=== PATIENT | male | born 1945 | race African-American/Black ===

== ENCOUNTER 2016-06-27 12:03 | Emergency (ER) | payer OTHER ==
--- NOTE | ~2016-06-27 | CT71 ---
[facility] A Service of [facility] RADIOLOGY TEXT RESULTS PATIENT: CRISTIANE DEVI JR LOCATION: [facility] : 47 UNIT #: [id number] AGE: [address]: Andres Jerome MD SEX: M ORDER DR: [id number] [facility] [address] [place], [place] [address] [id number] E MR#: [id number] Acc #: [id number] NAME: CRISTIANE DEVI JR : 1945 SEX: M STUDY DATE/TIME: 06/27/2016 10:35 UNIT: [facility]ARE ROOM: STUDY DESCRIPTION: CT Head Wo Contrast Attending Physician: Andres Jerome M.D. Ordering Physician: Andres Jerome M.D. Primary Care Physician: Froylan Allen M.D. MEDICAL IMAGING REPORT This report is preliminary unless electronic signature is present EXAM CT head 06/27/2016. COMPARISON CT head dated 02/11/2004. HISTORY Off balance. Dizziness. 4-day duration. TECHNIQUE CT head without contrast. This CT exam was performed with one or more of the following radiation dose reduction techniques: automatic exposure control, adjustment of mA and/or kV according to patient size, and iterative reconstruction. FINDINGS There is no acute intracranial hemorrhage, mass lesion, or acute infarct. There is some generalized global cerebral atrophy. The ventricles and basilar cisterns are normal in size and configuration. No extraaxial collections. No acute osseous abnormalities. Visualized paranasal sinuses and mastoids are clear. IMPRESSION No acute intracranial findings. Chronic small vessel changes. Dictated by... Raymundo Orosco M.D. THIS IS AN ELECTRONICALLY VERIFIED REPORT Raymundo Orosco M.D. at 06/27/2016 2:37 PM [facility] A Service [facility] RADIOLOGY TEXT RESULTS PATIENT: CRISTIANE DEVI JR LOCATION: [facility] : 47 UNIT #: [id number] AGE: [address]: Andres Jerome MD SEX: M ORDER DR: VICTOR HUGO/angela TD: 06/27/2016 12:41 JOB #: [id number] MEDICAL IMAGING REPORT COPY
--- NOTE | ~2016-06-27 | CR72 ---
[facility] A Service of [facility] RADIOLOGY TEXT RESULTS PATIENT: CRISTIANE DEVI JR LOCATION: [facility] : 47 UNIT #: [id number] AGE: [address]: Andres Jerome MD SEX: M ORDER DR: [id number] [facility] [address] [place], [place] [address] [id number] E MR#: [id number] Acc #: [id number] NAME: CRISTIANE DEVI JR : 1945 SEX: M STUDY DATE/TIME: 06/27/2016 10:22 UNIT: [facility] ROOM: STUDY DESCRIPTION: CR Chest Single View Portable Attending Physician: Andres Jerome M.D. Ordering Physician: Andres Jerome M.D. Primary Care Physician: Froylan Allen M.D. MEDICAL IMAGING REPORT This report is preliminary unless electronic signature is present EXAM Portable chest. INDICATIONS 70-year male with history of shortness of breath for 5 days. COMPARISON Compared with 01/31/2016 and 03/29/2015. FINDINGS There are chronic bilateral interstitial opacities. There is no definite acute infiltrate. The heart size stable. IMPRESSION Stable chronic bilateral interstitial opacities. No definite acute infiltrate. Dictated by... Froylan Swan M.D. THIS IS AN ELECTRONICALLY VERIFIED REPORT Froylan Swan M.D. at 06/27/2016 5:05 PM ARS/gz TD: 06/27/2016 12:22 JOB #: [id number] MEDICAL IMAGING REPORT COPY
--- NOTE | ~2016-06-27 | EKG ---
PATIENT: CRISTIANE DEVI UNIT #: [id number] Ventricular Rate: 64 BPM Atrial Rate: 64 BPM P-R Interval: 182 ms QRS Duration: 94 ms Q-T Interval: 432 ms QTC Calculation(Bezet): 445 ms P [place]: 50 degrees Calculated R [place]: 18 degrees Calculated T [place]: 33 degrees Diagnosis Line: Normal sinus rhythm Diagnosis Line: Normal ECG Diagnosis Line: When compared with ECG of 11-MAR-2015 09:26, Diagnosis Line: No significant change was found Diagnosis Line: Confirmed by ENRIQUETA MOMIN MD ([id number]) on Diagnosis Line: 06/29/2016 11:59:03 PM INTERPRETING MD: LILIANE BERNARDO
[2016-06-27 10:07] LABS: POC - CKMB <1.0 ng/mL (0.0-7.9); POC - TROPONIN <0.05 ng/mL (<=0.05)
[2016-06-27 10:21] LABS: BASOPHIL% 0.6 % (0-2.5); EOSINOPHIL# 0.1 X10e3 (0-0.7); EOSINOPHIL% 1.3 % (0.0-7.0); HEMOGLOBIN 11.6 gm/dL (13.0-16.0); LYMPHOCYTE# 2.4 X10e3 (1.0-3.5); LYMPHOCYTE% 41.8 % (17.0-45.0); MEAN CELL VOLUME 89.1 FL (83-96); MEAN CORPUSCULAR HEMOGLOBIN 28.6 PG (28-34); MEAN CORPUSCULAR HGB CONC 32.1 g/dL (30-36); MEAN PLATELET VOLUME 7.2 FL (6.5-11.5); MONOCYTE# 0.6 X10e3 (0-1.0); MONOCYTE% 10.4 % (3.0-12.0); NEUTROPHIL# 2.6 X10e3 (1.5-7.1); NEUTROPHIL% 45.9 % (40-75); PLATELET COUNT 228 X10e3 (140-420); RED BLOOD COUNT 4.04 X10e (3.90-5.60); RED CELL DISTRIBUTION WIDTH 15.4 % (11.0-15.5); WHITE BLOOD COUNT 5.8 X10e3 (4.0-10.5)
[2016-06-27 10:23] LABS: DIFF IND NO
[2016-06-27 10:52] LABS: ALBUMIN SERUM 3.8 g/dL (3.5-5.0); ALKALINE PHOSPHATASE 98 U/L (32-92); ALT (SGPT) 9 U/L (10-40); AST (SGOT) 16 U/L (10-42); BILIRUBIN,TOTAL 0.2 mg/dL (0.2-2.0); BLOOD UREA NITROGEN 13 mg/dL (9-23); CALCIUM SERUM 8.7 mg/dL (8.4-10.2); CARBON DIOXIDE 29 mmol/L (22-31); CHLORIDE 101 mmol/L (100-111); GLOM FILT RATE Estimated ABOVE60 mL/min (>60); GLUCOSE FASTING 91 mg/dL (70-110); PROTEIN TOTAL SERUM 7.2 g/dL (6.0-8.3); SODIUM 138 mmol/L (135-145)
[2016-06-27 10:53] LABS: BILIRUBIN, DIRECT <0.1 mg/dL (0.0-0.2); BILIRUBIN,INDIRECT 0.1 mg/dL (0.0-0.9)
[~2016-06-27 12:03] MED LIST: TRAZODONE HCL100 MG PO
[2016-06-27 12:17] LABS: POC - CKMB <1.0 ng/mL (0.0-7.9); POC - TROPONIN <0.05 ng/mL (<=0.05)
[2016-06-27 12:23] LABS: URINE SOURCE CLEAN CATCH
[2016-06-27 12:29] LABS: URINE APPEARANCE CLEAR; URINE BILIRUBIN NEG (NEG); URINE BLOOD NEG (NEG); URINE COLOR YELLOW; URINE GLUCOSE NEG (NEG); URINE KETONE NEG (NEG); URINE LEUKOCYTE ESTERASE NEG (NEG); URINE NITRATE NEG (NEG); URINE PROTEIN NEG (NEG); URINE SPECIFIC GRAVITY 1.025 (1.003-1.035)
[2016-06-27 12:40] LABS: CULTURE INDICATED? NO
== END 2016-06-27 13:56 | disposition home or self-care (01) ==
LOC: CED 12:03
PROVIDERS: Emergency Medicine
DX: R26.9 Unspecified abnormalities of gait and mobility (principal); R42 Dizziness and giddiness; I25.10 Atherosclerotic heart disease of native coronary artery without angina pectoris; I10 Essential (primary) hypertension; F17.200 Nicotine dependence, unspecified, uncomplicated
CPT/HCPCS: 36415; 70450; 71010; 80048; 80076; 81003; 82553; 84484; 85025; 93005; 99284